=== PATIENT | female | born 1945 | race Caucasian/White ===

== ENCOUNTER 2016-09-15 08:42 | Emergency (ER) | payer OTHER ==
[2016-09-15 09:09] VITALS: BP 134/67; PULSE 70; TEMP 98.6; BMI 23.3
--- NOTE | 2016-09-15 09:14 | PDOC ---
History of Present Illness - General Chief Complaint: Bone Injury Stated Complaint: left wrist injury fell this am Time Seen by Provider: 09/15/16 09:00 - History of Present Illness Initial Comments: 09/15/16 09:11 71-year-old female with a past medical history of Crohn's disease, on multiple medications She was rolling a cart this morning, and she slipped and fell, and landed on her buttocks, but then came down on her left hand and wrist She is complaining of left wrist pain She denies any left shoulder or left elbow pain She denies any numbness or tingling She denies any head injury or loss of consciousness She denies any neck or back pain She denies any buttocks pain She denies any other injury Remainder the review of systems is negative Past History - Past Medical History Allergies/Adverse Reactions: Allergies Allergy/AdvReac Type Severity Reaction Status Date / Time Penicillins Allergy Unknown Verified 09/15/16 08:46 mesalamine [From Apriso] AdvReac Intermediate Verified 09/15/16 08:46 Home Medications: Ambulatory Orders Mercaptopurine 100 mg PO DAILY 08/01/12 Ascorbic Acid [Vitamin C -] 1,000 mg PO DAILY 02/11/15 Calcium Carb, Citrate/Vit D3 [Calcium + D3 ER Tablet] 1 tab PO DAILY 02/11/15 Ferrous Gluconate [Ferate] 1 tab PO DAILY 02/11/15 Infliximab [Remicade Infusion -] 0 mg IVPB ASDIR 02/11/15 Mu-Vits-Min Th/Lycopene/Lutein [Ra [place] Tablet] 1 tab PO DAILY 02/11/15 Anemia: Yes (IRON) Asthma: No Cancer: No Cardiac Disorders: Yes (IRREGULAR HEART BEAT-) CVA: No COPD: No CHF: No Dementia: No Diabetes: No GI Disorders: Yes (colitis) Disorders: No HTN: No Hypercholesterolemia: No Liver Disease: No Seizures: No Thyroid Disease: No Other medical history: colitis - Surgical History Abdominal Surgery: No Appendectomy: No Cardiac Surgery: No Cholecystectomy: No Lung Surgery: Yes (R LOWER LUNG-WEDGE RESECTION) Neurologic Surgery: No Orthopedic Surgery: No - Psycho/Social/Smoking Cessation Hx Anxiety: No Suicidal Ideation: No Smoking History: Never smoked Have you smoked in the past 12 months: No If you are a former smoker, when did you quit?: 30 yrs ago Hx Alcohol Use: No Drug/Substance Use Hx: No Substance Use Type: None Hx Substance Use Treatment: No *Physical Exam - Vital Signs Last Vital Signs Temp Pulse Resp BP Pulse Ox 98.6 F 70 18 134/67 100 09/15/16 08:44 09/15/16 08:44 09/15/16 08:44 09/15/16 08:44 09/15/16 08:44 - Physical Exam Comments: 09/15/16 09:13 Physical exam Last Vital Signs Temp Pulse Resp BP Pulse Ox 98.6 F 70 18 134/67 100 09/15/16 08:44 09/15/16 08:44 09/15/16 08:44 09/15/16 08:44 09/15/16 08:44 Patient is awake alert and ambulatory without difficulty Answering questions without difficulty Head is normocephalic and atraumatic Left upper extremity- There is full range of motion of the left shoulder and left elbow There is some swelling and tenderness on the distal radius at the wrist The radial pulses intact No other wrist tenderness is noted There is some tenderness in the anatomic snuff box at the base of the left thumb No other hand tenderness is noted, no MCP joint tenderness is open Patient is able to make a fist and open her hand without difficulty Sensation is intact in all fingers There is good capillary refill in all fingers No other injuries noted ED Treatment Course - RADIOLOGY Radiology Studies Ordered: Category Date Time Status WRIST W/HAND-LEFT* [RAD] Stat Radiology 09/15/16 09:09 Ordered Medical Decision Making - Medical Decision Making 09/15/16 11:23 Left wrist and hand series There is some widening of the scapholunate distance concerning for a scapholunate ligament tear There is a possible hairline fracture of the distal radius, seen only in one view Splint applied, and sling Patient sent down to Dr. Scott's office for appointment *DC/Admit/Observation/Transfer Diagnosis at time of Disposition: Wrist fracture, left, Injury of ligament - Discharge Dispostion Disposition: HOME Condition at time of disposition: Stable - Referrals Referrals: Ernie Scott MD [Staff Physician] - - Patient Instructions Printed Discharge Instructions: How to Use a Sling Additional Instructions: You are to go down to Dr. Scott's office now to schedule follow-up appointment for the next 24-48 hours Sling, splint, rest Tylenol or Motrin for discomfort Return immediately if you develop numbness or tingling in your fingers, swelling , or any other concerns you may have Followup with your primary care physician in 24-48 hours Return immediately if you worsen in any way
== END 2016-09-15 11:37 | disposition home or self-care (01) ==
LOC: FER 08:42
PROC: 2W3FX1Z Immobilization of Left Hand using Splint (ICD-10-PCS; principal; 2016-09-15)
DX: S52.502A Unspecified fracture of the lower end of left radius, initial encounter for closed fracture (principal); W18.39XA Other fall on same level, initial encounter; Y93.89 Activity, other specified; Y92.9 Unspecified place or not applicable; T14.90 Injury, unspecified; Z87.891 Personal history of nicotine dependence; R00.8 Other abnormalities of heart beat
CPT/HCPCS: 73110-TC-LT; 73130-TC-LT; 99283-25

== ENCOUNTER 2022-01-17 11:10 | Emergency (ER) | payer OTHER ==
[2022-01-17 11:20] VITALS: BP 165/59; PULSE 82; RESP 16; TEMP 98; BMI 23.5
== END 2022-01-17 12:59 | disposition home or self-care (01) ==
LOC: FER 11:10
DX: S92.535A Nondisplaced fracture of distal phalanx of left lesser toe(s), initial encounter for closed fracture (principal); W01.0XXA Fall on same level from slipping, tripping and stumbling without subsequent striking against object, initial encounter
CPT/HCPCS: 73660-TC-LT-FY; 99283-25